=== PATIENT | male | born 1965 | race Two or more races ===

== ENCOUNTER 2023-06-21 04:54 | Inpatient (IN) | payer OTHER ==
[~2023-06-21] VITALS: Ht 160 cm; Wt 69.7 kg
[2023-06-21] MEDS ORDERED: ACETAMINOPHEN 650 mg PER 20.3 mL UD PO ONE (05:30)
[2023-06-21] MEDS ORDERED: SODIUM CHLORIDE 0.9% 500 ML IV ONE (05:30)
[2023-06-21] MEDS ORDERED: MAGNESIUM SULFATE 1GM/100ML 100 ML IV ONE (05:30)
[2023-06-21] MEDS ORDERED: ACETAMINOPHEN 325 MG TAB PO ONE (05:45)
[2023-06-21 06:20] VITALS: PULSE 136; RESP 23; O2SAT 93
[2023-06-21 06:30] LABS: Basophils # (auto) 0 10 ^3/uL (0-0.2); Basophils % (auto) 0.5 % (0.0-2.0); Eosinophils # (auto) 0 10 ^3/uL (0-0.8); Hematocrit 38.6 % (41.0-53.0); Hemoglobin 12.9 g/dL (13.5-17.5); Lymphocytes # (auto) 0.3 10 ^3/uL (0.4-5.4); Lymphocytes % (auto) 3.9 % (10.0-50.0); Mean Corpuscular Hemoglobin 31.2 pg (28.0-32.0); Mean Corpuscular Hgb Conc. 33.4 g/dL (32.0-36.0); Mean Corpuscular Volume 93.4 fL (80.0-100.0); Monocytes # (auto) 0.7 10 ^3/uL (0-1.3); Monocytes % (auto) 8.6 % (0.0-12.0); Neutrophils # (auto) 6.7 10 ^3/uL (1.6-8.6); Red Blood Cells 4.13 10^6/uL (4.5-5.90); Red Cell Distribution Width 13.8 % (11.8-14.3); White Blood Cell 7.7 10^3/uL (4.4-10.8)
[2023-06-21 07:07] LABS: Albumin 4.3 g/dL (3.4-5.0); Calcium 9.7 mg/dL (8.5-10.1); Lactic Acid w/Reflex 3.7 mmol/L (0.4-2.0); Magnesium 2.1 mg/dL (1.6-2.6); Potassium 4.4 mmol/L (3.5-5.1)
[2023-06-21 07:11] LABS: BUN/Creatinine Ratio 15.2 (10.0-20.0); Bilirubin, Total 0.6 mg/dL (0.2-1.0); Total Protein 8.3 g/dL (6.4-8.2)
[2023-06-21 07:35] VITALS: PULSE 122; RESP 26; O2SAT 92
[2023-06-21 08:09] LABS: Urine Bacteria NONE SEEN /hpf (None Seen); Urine Blood 2+ /uL (Negative); Urine Clarity Clear (Clear); Urine Color Yellow (Yellow); Urine Hyaline Cast FEW /lpf (0 - 2); Urine Mucus FEW (None Seen); Urine Protein, UAD 2+ (Negative); Urine Specific Gravity 1.028 (1.001-1.035); Urine Urobilinogen Normal (Negative); Urine WBC 2 /hpf (0 - 3); Urine pH 5.5 (5.0-8.0)
[2023-06-21] MEDS ORDERED: SODIUM CHLORIDE 0.9% 2,050 ML IV ONE (09:30)
[2023-06-21] MEDS ORDERED: ASPirin 81 mg TAB PO ONE (09:30)
[2023-06-21] MEDS ORDERED: ACETAMINOPHEN 325 MG TAB PO PRN (09:30)
[2023-06-21] MEDS ORDERED: AZITHROMYCIN 500MG/ 250ML 250 ML IV ONE (09:30)
[2023-06-21] MEDS ORDERED: PANTOPRAZOLE 40 MG/10 ML VIAL INJ IV ONE (09:30)
[2023-06-21] MEDS: HEPARIN SODIUM (PORCINE) 5000 UNITS/ML 1ML VIAL SC SCH ×2 (09:48→18:39)
[2023-06-21] MEDS: cefTRIAXone 1GM/50ML D5W 50 ML IV SCH (09:49)
[2023-06-21] MEDS ORDERED: VANCOMYCIN PER PHARMACY 0 MG IV SCH (10:00)
[2023-06-21] MEDS ORDERED: VANCOMYCIN 1GM/250ML 250 ML IV SCH (10:00)
[2023-06-21 10:13] LABS: INR 1.08 (0.9-1.15); Partial Thromboplastin Time 31.9 SEC (24.5-34.5); Prothrombin Time 11.3 sec (9.3-11.8)
[2023-06-21] MEDS ORDERED: METO-281 PO (11:41)
[2023-06-21] MEDS ORDERED: PANT40TA2 PO (11:41)
[2023-06-21] MEDS: VANCOMYCIN 1GM/250ML 250 ML IV SCH (13:11)
[2023-06-21] MEDS ORDERED: LACTULOSE 20Gm/30ML SOLN PO ONE (13:15)
[2023-06-21] MEDS ORDERED: FUROSEMIDE 20 MG/2 ML VIAL IV ONE (13:15)
[2023-06-21] MEDS ORDERED: ATOR10TA52 PO (14:10)
[2023-06-21] MEDS ORDERED: VENL150C58 PO (14:10)
[2023-06-21] MEDS ORDERED: LISI-275 PO (14:10)
[2023-06-21] MEDS ORDERED: NITROGLYCERIN 0.4 MG SL TAB SL PRN (14:15)
[2023-06-21] MEDS ORDERED: IPRATROPIUM BROM 0.5 MG/2.5ML INH SOL NEB SCH (14:15)
[2023-06-21] MEDS ORDERED: DEXTROSE (50%) 50ML SYRG IV PRN (14:15)
[2023-06-21] MEDS ORDERED: MORPHINE SULFATE INJ 2 MG/ml SYRG IV PRN (14:15)
[2023-06-21] MEDS ORDERED: ALBUTEROL SULF 2.5 MG/0.5ML(0.5%) NEB SOLN NEB SCH (14:15)
[2023-06-21 18:01] VITALS: PULSE 125; RESP 20; O2SAT 96
[2023-06-21 18:09] VITALS: PULSE 126; RESP 20; O2SAT 98
[2023-06-21] MEDS: IPRATROPIUM BROM 0.5 MG/2.5ML INH SOL NEB SCH (18:34)
[2023-06-21] MEDS: ALBUTEROL SULF 2.5 MG/0.5ML(0.5%) NEB SOLN NEB SCH (18:34)
[2023-06-21] MEDS: ACCU-CHEK COMFORT CURVE STRIP VI SCH ×2 (18:41→23:06)
[2023-06-21] MEDS: InsuLIN REG 1unit/0.01ml Soln (100units/ml) SC SCH ×2 (18:42→23:13)
[2023-06-21 20:00] VITALS: BP 120/86; PULSE 125; RESP 20; O2SAT 96
[2023-06-21 20:42] VITALS: PULSE 124; RESP 20; O2SAT 95
[2023-06-21] MEDS: CARVEDILOL 3.125 MG TAB PO SCH (23:11)
[2023-06-21] MEDS: FUROSEMIDE 20 MG/2 ML VIAL IV SCH (23:14)
[2023-06-22] VITALS (10 sets, daily range): PULSE 92–124; RESP 14–24; O2SAT 94–100
[2023-06-22] MEDS: ALBUTEROL SULF 2.5 MG/0.5ML(0.5%) NEB SOLN NEB SCH ×4 (00:21→18:01)
[2023-06-22] MEDS: IPRATROPIUM BROM 0.5 MG/2.5ML INH SOL NEB SCH ×4 (00:21→18:01)
[2023-06-22] MEDS: VANCOMYCIN 1GM/250ML 250 ML IV SCH ×2 (01:48→14:24)
[2023-06-22] MEDS: HEPARIN SODIUM (PORCINE) 5000 UNITS/ML 1ML VIAL SC SCH ×3 (01:49→18:42)
[2023-06-22] MEDS: InsuLIN REG 1unit/0.01ml Soln (100units/ml) SC SCH ×4 (06:40→23:03)
[2023-06-22] MEDS: ACCU-CHEK COMFORT CURVE STRIP VI SCH ×4 (06:40→22:46)
[2023-06-22] MEDS: cefTRIAXone 1GM/50ML D5W 50 ML IV SCH ×2 (09:30→10:15)
[2023-06-22] MEDS: FUROSEMIDE 20 MG/2 ML VIAL IV SCH ×2 (10:00→22:57)
[2023-06-22] MEDS: POTASSIUM CHL 20 Meq TABLET PO SCH (10:11)
[2023-06-22] MEDS: CARVEDILOL 3.125 MG TAB PO SCH (10:12)
[2023-06-22] MEDS: ASPirin 81 mg TAB PO SCH (10:12)
[2023-06-22] MEDS: AZITHROMYCIN 500MG/ 250ML 250 ML IV SCH (10:18)
[2023-06-22] MEDS: metroNIDAZOLE 500MG/100ML 100 ML IV SCH ×2 (14:23→23:04)
[2023-06-22] MEDS ORDERED: ALBUMIN 25% 100 ML IV ONE (14:45)
[2023-06-22] MEDS ORDERED: DOBUTamine 1000MCG/ML 250 ML IV SCH (14:45)
[2023-06-22] MEDS ORDERED: FUROSEMIDE 100 MG/10ML VIAL IV ONE (14:45)
[2023-06-22] MEDS ORDERED: EMPA1TAB PO (21:52)
[2023-06-22] MEDS ORDERED: ASPI-325 PO (21:52)
[2023-06-22] MEDS ORDERED: ALB5IS NEB (21:52)
[2023-06-22] MEDS ORDERED: IPR002IS NEB (21:52)
[2023-06-23] VITALS (27 sets, daily range): BP systolic 90–139; BP diastolic 59–82; PULSE 95–115; RESP 13–35; TEMP 97.2–98.4; O2SAT 89–100
[2023-06-23] MEDS: ALBUTEROL SULF 2.5 MG/0.5ML(0.5%) NEB SOLN NEB SCH ×3 (00:04→11:04)
[2023-06-23] MEDS: IPRATROPIUM BROM 0.5 MG/2.5ML INH SOL NEB SCH ×3 (00:04→11:03)
[2023-06-23] MEDS: VANCOMYCIN 1GM/250ML 250 ML IV SCH ×2 (01:10→13:00)
[2023-06-23] MEDS: HEPARIN SODIUM (PORCINE) 5000 UNITS/ML 1ML VIAL SC SCH ×2 (01:10→09:30)
[2023-06-23 04:58] LABS: Basophils # (auto) 0 10 ^3/uL (0-0.2); Basophils % (auto) 0.3 % (0.0-2.0); Eosinophils # (auto) 0 10 ^3/uL (0-0.8); Eosinophils % (auto) 0.6 % (0.0-7.0); Hematocrit 30.5 % (41.0-53.0); Hemoglobin 10.3 g/dL (13.5-17.5); Lymphocytes # (auto) 0.8 10 ^3/uL (0.4-5.4); Lymphocytes % (auto) 11.6 % (10.0-50.0); Mean Corpuscular Hemoglobin 30.9 pg (28.0-32.0); Mean Corpuscular Hgb Conc. 33.8 g/dL (32.0-36.0); Mean Corpuscular Volume 91.5 fL (80.0-100.0); Monocytes # (auto) 0.4 10 ^3/uL (0-1.3); Monocytes % (auto) 6.8 % (0.0-12.0); Neutrophils # (auto) 5.3 10 ^3/uL (1.6-8.6); Neutrophils % (auto) 80.7 % (37.0-80.0); Nucleated Red Blood Cells % 0.1 %; Red Blood Cells 3.33 10^6/uL (4.5-5.90); Red Cell Distribution Width 13.8 % (11.8-14.3); White Blood Cell 6.6 10^3/uL (4.4-10.8)
[2023-06-23 05:12] LABS: Albumin 3.6 g/dL (3.4-5.0); Calcium 8.4 mg/dL (8.5-10.1); Potassium 3.4 mmol/L (3.5-5.1)
[2023-06-23 05:16] LABS: BUN/Creatinine Ratio 29.9 (10.0-20.0); Bilirubin, Total 0.6 mg/dL (0.2-1.0); Total Protein 6.8 g/dL (6.4-8.2)
[2023-06-23] MEDS: metroNIDAZOLE 500MG/100ML 100 ML IV SCH (05:30)
[2023-06-23] MEDS ORDERED: EMPAGLIFLOZIN 10 MG TAB PO SCH (07:00)
[2023-06-23] MEDS: ACCU-CHEK COMFORT CURVE STRIP VI SCH ×2 (08:14→11:44)
[2023-06-23] MEDS: InsuLIN REG 1unit/0.01ml Soln (100units/ml) SC SCH ×2 (08:20→11:30)
[2023-06-23] MEDS: cefTRIAXone 1GM/50ML D5W 50 ML IV SCH (09:32)
[2023-06-23] MEDS: ASPirin 81 mg TAB PO SCH (10:23)
[2023-06-23] MEDS: POTASSIUM CHL 20 Meq TABLET PO SCH (10:23)
[2023-06-23] MEDS: FUROSEMIDE 20 MG/2 ML VIAL IV SCH (10:23)
[2023-06-23] MEDS: AZITHROMYCIN 500MG/ 250ML 250 ML IV SCH (10:24)
[2023-06-23] MEDS ORDERED: ONDANSETRON HCL 4 MG/2 ML VIAL IV PRN (10:30)
[2023-06-23] MEDS ORDERED: POTASSIUM CHL 20 Meq TABLET PO ONE (12:00)
[2023-06-23] MEDS ORDERED: POTA10TA51 PO (12:03)
[2023-06-23] MEDS ORDERED: FURO1TAB33 PO (12:03)
[2023-06-23] MEDS ORDERED: SACU1TAB PO (12:03)
[2023-06-23] MEDS ORDERED: DOXY1CAP57 PO (12:06)
[2023-06-23] MEDS ORDERED: AUG875T PO (12:06)
== END 2023-06-23 14:51 | disposition hospice, home (50) | DRG 291 ==
LOC: ER 04:54 → TELE 14:08 → DOU IN ICU 06-23 04:10
PROVIDERS: ADMIT Internal Medicine; ATTEND Internal Medicine
DX: I13.0 Hypertensive heart and chronic kidney disease with heart failure and stage 1 through stage 4 chronic kidney disease, or unspecified chronic kidney disease (principal); I50.43 Acute on chronic combined systolic (congestive) and diastolic (congestive) heart failure; J96.01 Acute respiratory failure with hypoxia; R57.0 Cardiogenic shock; N17.9 Acute kidney failure, unspecified; J98.11 Atelectasis; J44.0 Chronic obstructive pulmonary disease with (acute) lower respiratory infection; J91.8 Pleural effusion in other conditions classified elsewhere; I42.8 Other cardiomyopathies; E11.22 Type 2 diabetes mellitus with diabetic chronic kidney disease; N18.31 Chronic kidney disease, stage 3a; Z79.899 Other long term (current) drug therapy; Z87.891 Personal history of nicotine dependence; Z95.810 Presence of automatic (implantable) cardiac defibrillator
CPT/HCPCS: 36415; 71045; 71250; 71275; 74176; 80053; 80202; 81001; 82553; 82962; 83036; 83605; 83735; 83880; 84484; 85025; 85379; 85610; 85730; 86850; 86900; 86901; 87040; 87081; 87086; 93005; 93306; 94640; 96365; 96366; 96367; 96375; C9113; G0378; J0696; J1815; J2405; J3490; P9047